=== PATIENT | male | born 1945 | race Caucasian/White ===

== ENCOUNTER 2019-09-13 16:32 | Inpatient (IN) | payer MEDICARE ==
[~2019-09-13] VITALS: Ht 182.9 cm; Wt 110.5 kg
[2019-09-13 16:56] VITALS: BP 178/99
[2019-09-13 17:11] LABS: ABSOLUTE EOSINOPHILS 0.1 thou/uL (0.0-0.7); ABSOLUTE LYMPHOCYTES 1.6 thou/uL (0.8-5.3); ABSOLUTE MONOCYTES 0.6 thou/uL (0.0-1.2); ABSOLUTE NEUTROPHILS 4.9 thou/uL (1.6-8.1); BASOPHILS 0.7 %; HEMATOCRIT 43.2 % (42.0-52.0); HEMOGLOBIN 15.2 gm/dL (14.0-18.0); LYMPHOCYTES 22.3 %; MCH 33.5 pg (26.0-34.0); MCHC 35.2 g/dL (28.0-37.0); MCV 95.1 fL (80.0-100.0); MONOCYTES 8.1 %; MPV 8.4 fl. (7.2-11.1); NUCLEATED RBCS 0 /100WBC; PLATELET COUNT* 214 thou/uL (150-400); POLYS 67.9 %; RBC 4.54 mil/uL (4.50-6.00); RDW-CV 12.9 % (10.5-14.5); WBC 7.2 thou/uL (4.0-11.0)
[2019-09-13] MEDS ORDERED: SERTRALINE HCL100 MG PO (17:15)
[2019-09-13] MEDS ORDERED: ALLOPURINOL 10100 M1 PO (17:15)
[2019-09-13 17:24] LABS: CALCIUM 8.3 mg/dL (8.5-10.1); CREATININE 0.8 mg/dL (0.6-1.3); POTASSIUM 3.8 mmol/L (3.5-5.1)
[2019-09-13 17:39] LABS: ALBUMIN 3.8 g/dL (3.4-5.0); TOTAL BILIRUBIN 0.8 mg/dL (<0.1-1.0)
[2019-09-13 21:05] VITALS: BP 129/98
[2019-09-13 21:30] VITALS: BP 135/81
[2019-09-14] VITALS: BP 131/75
[2019-09-14 04:00] VITALS: BP 135/75
[2019-09-14 05:50] LABS: URINE BILIRUBIN NEGATIVE (Negative); URINE BLOOD NEGATIVE (Negative); URINE CLARITY CLEAR; URINE COLOR YELLOW; URINE GLUCOSE-RANDOM NEGATIVE (Negative); URINE KETONES NEGATIVE (Negative); URINE PROTEIN NEGATIVE (Negative); URINE SPECIFIC GRAVITY 1.015 (1.005-1.030); URINE UROBILINOGEN 0.2 E.U./dl (0.2-1.0)
[2019-09-14 06:02] LABS: URINE LEUKOCYTES-REFLEX 3+ (Negative); URINE NITRITE-REFLEX POSITIVE (Negative)
[2019-09-14 06:44] LABS: CASTS None Seen /LPF (None Seen); SQUAMOUS 0-3 Few /LPF (0-3)
[2019-09-14 06:45] LABS: CRYSTALS None Seen /LPF (None Seen); URINE RBC 0-2 Rare /HPF (0-2)
[2019-09-14 08:00] VITALS: BP 146/80
[2019-09-14 11:43] LABS: BE 1.2 mmol/L (-2 to +3); PCO2 43.1 mmHg (35.0-45.0); PO2 79.2 mmHg (75.0-100.0); pH 7.403 (7.340-7.450)
[2019-09-14 11:44] VITALS: BP 142/75
[2019-09-14 16:33] VITALS: BP 129/60
[2019-09-14 20:00] VITALS: BP 149/77
[2019-09-15] VITALS: BP 137/63
[2019-09-15 03:42] LABS: HEMATOCRIT 40.4 % (42.0-52.0); HEMOGLOBIN 14.3 gm/dL (14.0-18.0); MCH 33.4 pg (26.0-34.0); MCHC 35.3 g/dL (28.0-37.0); MCV 94.5 fL (80.0-100.0); MPV 8.2 fl. (7.2-11.1); RBC 4.28 mil/uL (4.50-6.00); RDW-CV 13.5 % (10.5-14.5); WBC 6.8 thou/uL (4.0-11.0)
[2019-09-15 03:50] LABS: CALCIUM 8.5 mg/dL (8.5-10.1); CREATININE 0.8 mg/dL (0.6-1.3); MAGNESIUM 1.9 mg/dL (1.8-2.4); POTASSIUM 3.7 mmol/L (3.5-5.1)
[2019-09-15 04:00] VITALS: BP 140/68
[2019-09-15 08:00] VITALS: BP 156/76
[2019-09-15 11:19] VITALS: BP 150/90
--- NOTE | 2019-09-15 12:53 | EKG ---
[place] [address] ELECTROCARDIOGRAM REPORT Name: NICOLASA HOLMAN Room: [address] IN .R.#: [id number] Admission: 09/14/19 Attend Phys: Oliver Aguero, Discharge: Date of : 41 Date of Service: 09/13/19 1737 Report #: [id number] THIS REPORT FOR: //name// [facility] ED Test Date: 2019-09-13 Test Time: 17:37:26 Pat Name: NICOLASA RAMOSJAY Department: Room: [facility] Gender: M Clerical Order Filler: TDS : 1945 Requested By: Aren Mosqueda Order Number: [id number] MD: Charlie Dumont Measurements Intervals [place] Rate: 69 P: -65 HI: 218 QRS: -25 QRSD: 89 T: 69 QT: 418 QTc: 448 Interpretive Statements Sinus or ectopic atrial rhythm Borderline prolonged HI interval Borderline left axis deviation Borderline low voltage, extremity leads No previous ECG available for comparison Electronically Signed On 09-15-2019 12:53:05 CDT by Charlie Dumont [email or web address] <ELECTRONICALLY SIGNED> By: Charlie Dumont MD, FACC 09/15/19 1253 1737 1737 Charlie Dumont MD, [facility] /EPI
[2019-09-15 20:00] VITALS: BP 150/70
[2019-09-16] VITALS: BP 168/88
[2019-09-16 04:00] VITALS: BP 164/79
[2019-09-16 08:00] VITALS: BP 135/86
[2019-09-16] MEDS ORDERED: LISINOPRIL-HCT1 EAC2 PO (09:23)
[2019-09-16 12:35] VITALS: BP 121/65
[2019-09-16 17:48] VITALS: BP 154/77
[2019-09-16 20:00] VITALS: BP 142/74
[2019-09-17 04:00] VITALS: BP 148/87
[2019-09-17 08:44] VITALS: BP 169/78
[2019-09-17] MEDS ORDERED: VITAMIN B122500 MCG PO (09:59)
[2019-09-17] MEDS ORDERED: PREDNISONE 10 M10 MG PO (09:59)
[2019-09-17] MEDS ORDERED: LEVAQUIN 500 M500 M1 PO (09:59)
[2019-09-17 11:30] VITALS: BP 169/78
[2019-09-17 12:30] VITALS: BP 169/78
[2019-09-17 13:00] VITALS: BP 169/78
--- NOTE | 2019-09-18 20:00 | EEG ---
[address] [address] EEG STUDY REPORT Name: NICOLASA HOLMAN Room: [address] IN M.R.#: [id number] Admission: 09/14/19 Attend Phys: Oliver Aguero MD Discharge: 09/17/19 Date of : 41 Report #: [id number] THIS REPORT FOR: //name// CC: Oliver Elise DATE OF SERVICE: 09/14/2019 This patient is being evaluated for altered mental status. EEG was done by placing the electrode by standard 10-20 system of electrode placement. Both referential and sequential montages were used for recording. Background activity in this patient's EEG is about 9 Hz and 30 microvolt. The patient went to sleep that is associated with bilateral slowing and vertex sharp waves. Photic stimulation is unremarkable. Throughout the record, no active epileptiform activity was noticed. IMPRESSION: This patient's EEG is intermixed with some theta range slowing on both sides. That is a nonspecific abnormality, which can occur with encephalopathy, effect of psychotropic medication, dementia, etc. Clinical correlation is recommended. <ELECTRONICALLY SIGNED> By: Donnell Dave MD 09/18/191999 1310 1314Pjanet Dave MD /nt
--- NOTE | 2019-09-18 20:00 | CON ---
[address] [address] CONSULTATION Name: NICOLASA HOLMAN Room: [address] IN M.R.#: [id number] Admission: 09/14/19 Attend Phys: Oliver Aguero MD Discharge: 09/17/19 Date of : 41 Report #: [id number] THIS REPORT FOR: //name// cc: Shane Elise MD, David L. MD ~ THIS REPORT FOR: //name// CC: Oliver Elise DATE OF SERVICE: 09/14/2019 HISTORY OF PRESENT ILLNESS: This is a 74-year-old male patient who is admitted with pretty unusual history. He does not provide any history. He does not even open his eyes. I was able to reach the patient's and she indicated this is his third episode. He gets confused for a couple of 3 days, then he becomes better. They did not seek any medical attention the last time and basically kept him at home and he became better. They thought he was depressed because he has lot on his plate. She says that he has to take care of her and she also has other instance, which she thinks might be making him depressed. He is on antidepressant. REVIEW OF SYSTEMS: Apparently is positive for COPD with exacerbation. There was some shaking noticed when this happened. I do not get a clear-cut history that it was a seizure. I carried out 14-point review of systems as much as I could from the record as well as from the patient's . He apparently has a history of knee replacement, hiatus hernia, hypertension, depression, emphysema. His CT scan shows prior cerebellar strokes. That was his relevant 14-point review of systems. PAST MEDICAL HISTORY: Positive for similar episodes. FAMILY HISTORY: Unremarkable. SOCIAL HISTORY: The record says he drinks alcohol, but did not provide that history. PHYSICAL EXAMINATION: NEUROLOGIC: Very limited. He is sleepy. He will not wake up. When I will try to examine his eye, he will squeeze it shut. I tried to do the cranial nerve examination, he will not cooperate. He did not talk at all to me. One time he followed simple command when I asked him to stick his tongue out. I cannot tell about sensory, motor examination. His tone looks unremarkable. Reflexes look symmetrical. He will not do cerebellar sign for me. I do not believe he has meningeal sign. He refused to be examined for pupil or for the fundus. RESPIRATORY: He does not appear to [place] [address] CONSULTATION Name: NICOLASA HOLMAN Room: [address]#: [id number] Admission: 09/14/19 Attend Phys: Oliver Aguero MD Discharge: 09/17/19 Date of : 41 Report #: [id number] VITAL SIGNS: His pulses are difficult to feel. His blood pressure is 142/75, respirations 16, pulse is 77, temperature is 98.2. LABORATORY DATA: His white count is normal. UTI does indicate finding consistent with urinary tract infections. Cardiac examination is unremarkable. Head MRI does not show any new stroke. CT shows old stroke, but no new stroke. IMPRESSION: Pretty difficult to form in this patient. Although it can be seizure, but history is not very classical. Urinary tract infection causing encephalopathy and then seizure is a real possibility in this patient. It is unlikely a stroke or any central nervous system infection. RECOMMENDATIONS: 1. We will get an EEG. 2. We will see if he improves with treatment of the urinary tract infection. 3. If he does not, then he will need a spinal tap. I discussed all of it with the patient's and she understands and she wants to follow this plan. Thank you very much for this referral and if you have any question, please feel free to contact. <ELECTRONICALLY SIGNED> By: Donnell Dave MD 09/18/191999 1542 1617Parandressa Dave MD /nt
== END 2019-09-17 13:09 | disposition home health service (06) | DRG 193 ==
LOC: M.ERS 16:32 → M.TBA-ER 18:43 → M.2W 21:37
PROVIDERS: Emergency Medicine Emergency Medical Services; Internal Medicine; ADMIT Internal Medicine; ATTEND Internal Medicine
DX: J18.9 Pneumonia, unspecified organism (principal); J96.01 Acute respiratory failure with hypoxia; G92 Toxic encephalopathy; N39.0 Urinary tract infection, site not specified; J44.0 Chronic obstructive pulmonary disease with (acute) lower respiratory infection; I10 Essential (primary) hypertension; B96.89 Other specified bacterial agents as the cause of diseases classified elsewhere; E53.8 Deficiency of other specified B group vitamins; E66.9 Obesity, unspecified; F32.9 Major depressive disorder, single episode, unspecified; Z20.828 Contact with and (suspected) exposure to other viral communicable diseases; Z96.659 Presence of unspecified artificial knee joint; Z88.0 Allergy status to penicillin; Z79.899 Other long term (current) drug therapy; Z86.73 Personal history of transient ischemic attack (TIA), and cerebral infarction without residual deficits; Z68.33 Body mass index [BMI] 33.0-33.9, adult

== ENCOUNTER 2019-09-19 10:59 | Emergency (ER) | payer MEDICARE ==
[~2019-09-19] VITALS: Ht 185.4 cm; Wt 105.7 kg
[~2019-09-19 10:59] MED LIST: ALLOPURINOL 10100 M1 PO; LEVAQUIN 500 M500 M1 PO; LISINOPRIL-HCT1 EAC2 PO; PREDNISONE 10 M10 MG PO; SERTRALINE HCL100 MG PO; VITAMIN B122500 MCG PO
[2019-09-19 11:25] LABS: ABSOLUTE EOSINOPHILS 0.1 thou/uL (0.0-0.7); ABSOLUTE MONOCYTES 0.8 thou/uL (0.0-1.2); ABSOLUTE NEUTROPHILS 4.9 thou/uL (1.6-8.1); BASOPHILS 0.3 %; EOSINOPHILS 1.8 %; HEMATOCRIT 42.5 % (42.0-52.0); HEMOGLOBIN 14.9 gm/dL (14.0-18.0); LYMPHOCYTES 25.4 %; MCH 33.3 pg (26.0-34.0); MONOCYTES 10.7 %; MPV 7.9 fl. (7.2-11.1); NUCLEATED RBCS 0 /100WBC; PLATELET COUNT* 199 thou/uL (150-400); POLYS 61.8 %; RBC 4.47 mil/uL (4.50-6.00); RDW-CV 13.4 % (10.5-14.5); WBC 7.8 thou/uL (4.0-11.0)
[2019-09-19 11:32] LABS: CALCIUM 8.5 mg/dL (8.5-10.1); CREATININE 0.8 mg/dL (0.6-1.3); POTASSIUM 3.9 mmol/L (3.5-5.1)
[2019-09-19 11:33] LABS: APTT 25.2 Seconds (25.0-31.3); PROTIME 10.8 Seconds (9.20-11.50)
[2019-09-19 11:43] LABS: ALBUMIN 3.8 g/dL (3.4-5.0); TOTAL BILIRUBIN 0.8 mg/dL (<0.1-1.0); TOTAL PROTEIN 6.7 g/dL (6.4-8.2)
[2019-09-19 14:13] VITALS: BP 140/84
--- NOTE | 2019-09-19 15:46 | EKG ---
[place] [address] ELECTROCARDIOGRAM REPORT Name: NICOLASA HOLMAN Room: [facility]#: [id number] Admission: 09/19/19 Attend Phys: Discharge: 09/19/19 Date of : 41 Date of Service: 09/19/19 1202 Report #: [id number] THIS REPORT FOR: //name// [facility] ED Test Date: 2019-09-19 Test Time: 12:02:24 Pat Name: NICOLASA RAMOSJAY Department: Room: Gender: Rn Review: : 1945 Requested By: Conner Ramirez Order Number: [id number] MD: Charlie Dumont Measurements Intervals [place] Rate: 81 P: 13 ID: 226 QRS: -14 QRSD: 87 T: 75 QT: 393 QTc: 457 Interpretive Statements Sinus arrhythmia Prolonged ID interval Borderline low voltage, extremity leads Anteroseptal infarct, age indeterminate, possible compared to ECG 09/13/2019 17:37:26 Myocardial infarct finding now present Ectopic atrial rhythm no longer present Electronically Signed On 09-19-2019 15:46:28 CDT by Charlie Dumont [email or web address] <ELECTRONICALLY SIGNED> By: Charlie Dumont MD, FACC 09/19/19 1546 1202 1202 Charlie Dumont MD, FAC /EPI
== END 2019-09-19 14:39 | disposition home or self-care (01) ==
LOC: M.ERS 10:59
PROVIDERS: Family Medicine
DX: F41.0 Panic disorder [episodic paroxysmal anxiety] (principal); I10 Essential (primary) hypertension; F32.9 Major depressive disorder, single episode, unspecified; Z96.659 Presence of unspecified artificial knee joint; Z88.0 Allergy status to penicillin

== ENCOUNTER 2020-05-28 14:36 | Observation (INO) | payer OTHER ==
[~2020-05-28] VITALS: Ht 185.4 cm; Wt 107.0 kg
[2020-05-28 14:38] VITALS: BP 127/68
[2020-05-28 15:47] LABS: ABSOLUTE EOSINOPHILS 0.1 thou/uL (0.0-0.7); ABSOLUTE LYMPHOCYTES 1.6 thou/uL (0.8-5.3); ABSOLUTE MONOCYTES 0.6 thou/uL (0.0-1.2); ABSOLUTE NEUTROPHILS 3.8 thou/uL (1.6-8.1); BASOPHILS 0.5 %; EOSINOPHILS 2.2 %; HEMATOCRIT 38.6 % (42.0-52.0); HEMOGLOBIN 13.1 gm/dL (14.0-18.0); MCH 31.4 pg (26.0-34.0); MCHC 33.9 g/dL (28.0-37.0); MCV 92.5 fL (80.0-100.0); MONOCYTES 9.5 %; MPV 8.2 fl. (7.2-11.1); NUCLEATED RBCS 0 /100WBC; PLATELET COUNT* 187 thou/uL (150-400); POLYS 61.8 %; RBC 4.17 mil/uL (4.50-6.00); RDW-CV 13.8 % (10.5-14.5); WBC 6.1 thou/uL (4.0-11.0)
--- NOTE | 2020-05-28 15:55 | EKG ---
[place] [address] ELECTROCARDIOGRAM REPORT Name: NICOLASA HOLMAN Room: [facility]#: [id number] Admission: 05/28/20 Attend Phys: Discharge: Date of : 41 Date of Service: 05/28/20 1542 Report #: [id number] THIS REPORT FOR: //name// [facility] ED Test Date: 2020-05-28 Test Time: 15:42:55 Pat Name: NICOLASA HOLMAN Department: Room: Gender: Transmission Maintenance Supervisor: [facility] : 1945 Requested By: Conner Ramirez Order Number: [id number] MD: Shane Johnson Measurements Intervals [place] Rate: 51 P: 0 MT: 235 QRS: 40 QRSD: 95 T: 104 QT: 449 QTc: 414 Interpretive Statements Sinus bradycardia Prolonged MT interval Low voltage, extremity leads Nonspecific T abnormalities, lateral leads Compared to ECG 09/19/2019 12:02:24 Sinus arrhythmia no longer present Electronically Signed On 05-28-2020 15:55:45 CDT by Shane Johnson [email or web address] <ELECTRONICALLY SIGNED> By: Shane Johnson MD, FAC 05/28/20 1555 1542 1542 Shane Johnson MD, [facility] /EPI
[2020-05-28 15:57] LABS: CALCIUM 8.3 mg/dL (8.5-10.1); CREATININE 0.7 mg/dL (0.6-1.3); POTASSIUM 3.5 mmol/L (3.5-5.1)
[2020-05-28 16:01] LABS: ALBUMIN 3.2 g/dL (3.4-5.0); TOTAL BILIRUBIN 0.7 mg/dL (<0.1-1.0); TOTAL PROTEIN 6.2 g/dL (6.4-8.2)
[2020-05-28 16:08] LABS: APTT 26.9 Seconds (25.0-31.3)
[2020-05-28 18:11] VITALS: BP 124/65
[2020-05-28 18:43] VITALS: BP 120/67
[2020-05-28] MEDS ORDERED: FLOMAX0.4 MG PO (18:53)
--- NOTE | 2020-05-28 19:03 | NUR ---
RECIEVIED REPORT FROM ISI CMKEON IN ER OF EXPECTED ADMISSION- DX: INTRACTABLE BACK PAIN, WEAKNESS, AND TACHYCARDIA- PT ARRIVED TO ROOM 231 VIA CART, SBA TO BED- ACCOUNTANT AUDITOR PLACED ORDERED, TRACING SB/1ST DEGREE- NURSE IN ER REPORTS ST TO BE CONFUSED WITH TREMORS THAT HE WAS HAVING WHILE IN ER- EKG NOTED SB- VSS, O2 SAT 99% ON 2L VIA NC- PT DENIES ANY PAIN AT TIME OF ADMISSION- CARDIO CONSULTED ORDERED- BOX LUNCH PROVIDED TO PT WITH GOOD PO INTAKE NOTED- CALL LIGHT AND PERSONAL BELONGINGS WITH IN REACH- ALL NEEDS MET AT THIS TIME
[2020-05-28 20:00] VITALS: BP 134/68
--- NOTE | 2020-05-28 20:00 | NUR ---
RECEIVED REPORT AND ASSUMED CARE OF PT, ASSESSMENT COMPLETED. TELEMETRY ON SHOWING SB WITH 1ST AVB. DENIES BACK PAIN AT THIS TIME. WILL CONT TO MONITOR AND ASSIST NEEDED.
[2020-05-28 23:40] VITALS: BP 124/64
[2020-05-29 05:04] VITALS: BP 121/66
--- NOTE | 2020-05-29 05:17 | NUR ---
SLEPT WELL TONIGHT. O2 AT 2L/NC, WEARS MOSTLY AT NIGHT WHEN SLEEPING. NO COMPLAINTS VOICED. HS GOALS OF REST AND SAFETY ACHIEVED. HOURLY ROUNDING OBSERVED.
[2020-05-29 08:00] VITALS: BP 134/80
--- NOTE | 2020-05-29 10:12 | NUR ---
CM SPOKE TO THE PT TO DISCUSS CM ASSESSMENT. PT A&O, NORMALLY INDEPENDENT WITH ADL'S, ACTIVE AND DRIVES. PT RESIDES AT HOME WITH SPOUSE. PT USES HOME OXYGEN @ 3L AT [facility] AND PRN PROVIDED BY [facility]. PT HAS PAST HH HX WITH [facility]. PT HAS 0 HX OF SNF. CM WILL REMAIN AVAILABLE TO ASSIST AND FOLLOW NEEDED.
[2020-05-29 11:45] VITALS: BP 126/71
--- NOTE | 2020-05-29 14:48 | NUR ---
[facility] Nurse Transition Navigator Bedside Assessment Note: Patient is receptive to HH. Says he thinks he had this for his . Pt. lives with who has worsening dementia. Patient was admitted with severe back pain and has been having pain injections for this. We discussed specific therapy to help with his pain. Patient will remain Homebound and will have his meds available for viewing.
--- NOTE | 2020-05-29 14:57 | CON ---
[address] [address] CONSULTATION Name: NICOLASA HOLMAN Room: [address] Raegan Zelaya#: [id number] Admission: 05/28/20 Attend Phys: Mercedes Rios Discharge: Date of : 41 Report #: [id number] THIS REPORT FOR: cc: Shane Elise MD, David L. MD Blick, David R. MD [facility] ~ DATE OF SERVICE: 05/29/2020 CARDIOLOGY CONSULTATION HISTORY OF PRESENT ILLNESS: The patient is a 75-year-old white male whom I was asked to see in the hospital today after he was noted to be tachycardic. The patient quit smoking years ago. However, he does have a history of COPD and is on home oxygen and uses a nebulizer. He is not very active at this time. He has had chronic back pain for years and has received epidurals in the past. Yesterday, he was at home when he fell off the chair and could not get up. He called the ambulance and brought here to [facility] for further evaluation and treatment. He denied the pain radiating down his legs. He denied any weakness of his legs. Denied any recent trauma. He denies a history of chest pain, myocardial infarction, or syncope. PAST MEDICAL HISTORY: He has had knee surgery, epidural injections in the past, and hypertension. CURRENT MEDICATIONS: Consists of allopurinol, lisinopril HCT, Zoloft, Flomax. ALLERGIES: HE HAS NO ALLERGY TO PENICILLIN. FAMILY HISTORY: Negative for heart disease. SOCIAL HISTORY: He is . He and his live in [place]. He is a retired, clerical worker. He quit smoking years ago. He used to drink alcohol daily, but quit years ago. REVIEW OF SYSTEMS: He apparently had an MRI in the past that showed evidence of previous stroke. No history of liver disease, kidney disease, cancer, psychiatric illness, chronic skin condition. PHYSICAL EXAMINATION: GENERAL: Revealed an elderly male, lying in bed, appeared in no distress. VITAL SIGNS: He had a blood pressure of 130/60s, pulse 60 and regular. He was afebrile. HEENT: He was anicteric. Conjunctivae pink. Mucous membranes are moist. NECK: Veins do not appear distended. No carotid bruits[place] [address] CONSULTATION Name: RIVERNICOLASA [address] [id number] Admission: 05/28/20 Attend Phys: Mercedes Rios Discharge: Date of : 41 Report #: [id number] CHEST: Revealed end expiratory wheezes. CARDIAC: Regular rate and rhythm. No murmur. ABDOMEN: Soft. EXTREMITIES: Has had no edema. Dorsalis pedis pulse 2+. SKIN: Cool and dry. NEUROLOGIC: Nonfocal. RADIOLOGICAL DATA: ECG showed sinus bradycardia, first-degree AV block, poor R-wave progression. His workup in the Emergency Room yesterday, he actually had a CT scan of the head that showed no acute abnormality, atrophy. He actually had carotid Doppler study performed last September here at [facility] that showed no significant stenosis. His last chest x-ray was in September here at [facility] that showed no acute abnormalities. LABORATORY WORK: In the Emergency Room, sodium 141, potassium 3.5, creatinine 0.7. Liver function studies were normal. Troponin 0.06. TSH last September was 0.6, T4 is 0.8. White blood cell count 6.1, hematocrit 38.6. IMPRESSION AND RECOMMENDATIONS: 1. Chronic back pain. 2. Sinus bradycardia. If symptomatic, he would require pacemaker. 3. Tachycardia noted on monitor. Appears to be artifact. Recommend no further cardiac evaluation. 4. Hypertension. The patient is on ROBERTA inhibitor and diuretic. 5. Chronic obstructive pulmonary disease. The patient is on chronic oxygen. <ELECTRONICALLY SIGNED> By: Shane Johnson MD, [facility] 05/29/20 1457 0901 0914Dayuli Johnson MD, FACC /nt
[2020-05-29 16:00] VITALS: BP 126/72
[2020-05-29 18:34] LABS: URINE BILIRUBIN NEGATIVE (Negative); URINE BLOOD NEGATIVE (Negative); URINE CLARITY CLEAR; URINE COLOR YELLOW; URINE GLUCOSE-RANDOM NEGATIVE (Negative); URINE KETONES NEGATIVE (Negative); URINE LEUKOCYTES-REFLEX NEGATIVE (Negative); URINE NITRITE-REFLEX NEGATIVE (Negative); URINE PROTEIN NEGATIVE (Negative); URINE UROBILINOGEN 0.2 E.U./dl (0.2-1.0)
[2020-05-29] MEDS ORDERED: PULMICORT0.25 MG/2 INH (18:55)
[2020-05-30] VITALS (7 sets, daily range): BP systolic 100–149; BP diastolic 59–81
[2020-05-30] MEDS ORDERED: PERCOCET PO (09:00)
--- NOTE | 2020-05-30 11:34 | NUR ---
ASSUMED CARE OF PATIENT THIS AM AT 0730. PATIENT IS ALERT AND ORIENTED X 4. HE C/O BACK PAIN THIS AM. TELE SHOWS SINUS GRICELDA ARRYTHMIA WITH A 1DAVB. PATIENT IS UP IN THE CHAIR THIS AM. PATIENT MEDICATED FOR PAIN X 1. HE STATED PAIN MEDICATION HELPED HIS PAIN. DR IN TO ROUND THIS AM. DISCHARGE ORDERS WERE WRITTEN. SALINE LOCK AND TELE MONITOR DISCONTINUED. SEATING CAPTAIN IN TO SEE PATIENT AND SET UP HOME HEALTH.
--- NOTE | 2020-05-30 11:49 | NUR ---
CM INFORMED OF PLAN FOR PT TO D/C HOME TODAY WITH PREVIOUSLY CHOSEN CHEMO. CM SPOKE TO THE PT AND HE IS IN AGREEMENT WITH THIS PLAN. CM FAXED CHEMO PT'S D/C ORDERS. NO OTHER CM D/C PLANNING NEEDS ANTICIPATED. CM WILL REMAIN AVAILABLE TO ASSIST AND FOLLOW NEEDED. CHEMO PHONE: [phone] FAX: [phone]
== END 2020-05-30 13:39 | disposition home health service (06) ==
LOC: M.ERS 14:36 → M.2W 16:47 → M.TBA-ER 16:47 → M.2W 18:26
PROVIDERS: Family Medicine; ADMIT Internal Medicine; ATTEND Internal Medicine
DX: M54.9 Dorsalgia, unspecified (principal); G89.29 Other chronic pain; Z20.822 Contact with and (suspected) exposure to COVID-19; I10 Essential (primary) hypertension; J44.9 Chronic obstructive pulmonary disease, unspecified; F32.9 Major depressive disorder, single episode, unspecified; M10.9 Gout, unspecified; R00.1 Bradycardia, unspecified; Z79.899 Other long term (current) drug therapy; Z87.891 Personal history of nicotine dependence

== ENCOUNTER 2020-11-18 19:54 | Emergency (ER) | payer OTHER ==
[~2020-11-18] VITALS: Ht 182.9 cm; Wt 99.8 kg
[~2020-11-18 19:54] MED LIST changes: +FLOMAX0.4 MG PO; +PERCOCET PO; +PULMICORT0.25 MG/2 INH
[2020-11-18] MEDS ORDERED: CELEXA 10 MG TA10 M1 PO (20:30)
[2020-11-18 20:39] LABS: HEMATOCRIT 36.4 % (42.0-52.0); HEMOGLOBIN 12.6 gm/dL (14.0-18.0); MCH 32.3 pg (26.0-34.0); MCHC 34.8 g/dL (28.0-37.0); MCV 92.9 fL (80.0-100.0); MPV 7.9 fl. (7.2-11.1); RBC 3.91 mil/uL (4.50-6.00); RDW-CV 13.7 % (10.5-14.5); WBC 6.7 thou/uL (4.0-11.0)
[2020-11-18 20:51] LABS: ANION GAP < 0 mmol/L (7-16); BUN 9 mg/dL (7-18); CALCIUM 8.7 mg/dL (8.5-10.1); CHLORIDE 105 mmol/L (98-107); CO2 33 mmol/L (21-32); CREATININE 0.7 mg/dL (0.6-1.3); GLUCOSE 92 mg/dL (70-99); POTASSIUM 3.7 mmol/L (3.5-5.1); SODIUM 135 mmol/L (136-145)
[2020-11-18 20:55] LABS: ALBUMIN 3.2 g/dL (3.4-5.0); ALKALINE PHOSPHATASE 78 U/L (46-116); SGOT 9 U/L (15-37); SGPT 17 U/L (30-65); TOTAL BILIRUBIN 0.5 mg/dL (<0.1-1.0); TOTAL PROTEIN 6.1 g/dL (6.4-8.2)
[2020-11-18 21:01] LABS: ALCOHOL < 10 mg/dL (<10); SALICYLATE < 2.8 mg/dL (2.8-20.0)
[2020-11-18 21:04] LABS: ACETAMINOPHEN < 2 ug/mL (10-30)
[2020-11-19 00:39] LABS: URINE BILIRUBIN NEGATIVE (Negative); URINE BLOOD NEGATIVE (Negative); URINE CLARITY CLEAR; URINE COLOR YELLOW; URINE GLUCOSE-RANDOM NEGATIVE (Negative); URINE KETONES NEGATIVE (Negative); URINE LEUKOCYTES NEGATIVE (Negative); URINE NITRITE NEGATIVE (Negative); URINE PROTEIN NEGATIVE (Negative); URINE SPECIFIC GRAVITY 1.015 (1.005-1.030)
[2020-11-19 00:47] LABS: AMP/METHAMP Negative (Negative); BARBITURATES Negative (Negative); BENZODIAZEPINES Negative (Negative); COCAINE Negative (Negative); METHADONE Negative (Negative); OPIATES Negative (Negative); PCP Negative (Negative); THC Negative (Negative)
[2020-11-19 02:10] VITALS: BP 109/57
--- NOTE | 2020-11-19 11:20 | EKG ---
[place] [address] ELECTROCARDIOGRAM REPORT Name: NICOLASA HOLMAN Room: [facility]#: [id number] Admission: 11/18/20 Attend Phys: Discharge: 11/19/20 Date of : 41 Date of Service: 11/18/202050 Report #: [id number] THIS REPORT FOR: //name// [facility] ED Test Date: 2020-11-18 Test Time: 20:51:36 Pat Name: NICOLASA RAMOSJAY Department: Room: Gender: Energy Conservation Specialist: : 1945 Requested By: Helen Baker Order Number: [id number] MD: Charlie Dumont Measurements Intervals [place] Rate: 117 P: [place]: QRS: -12 QRSD: 135 T: 78 QT: 389 QTc: 543 Interpretive Statements Atrial fibrillation Compared to ECG 05/28/2020 15:42:55 Sinus bradycardia no longer present First degree AV block no longer present T-wave abnormality still present Electronically Signed On 11-19-2020 11:19:48 CDT by Charlie Dumont [email or web address] <ELECTRONICALLY SIGNED> By: Charlie Dumont MD, FACC 11/19/20 1119 50 50 Charlie Dumont MD, FAC /EPI
== END 2020-11-19 02:12 ==
LOC: M.ERS 19:54
PROVIDERS: Personal Emergency Response Attendant
DX: R45.851 Suicidal ideations (principal); I10 Essential (primary) hypertension; Z79.899 Other long term (current) drug therapy; Z98.890 Other specified postprocedural states

== ENCOUNTER 2021-01-11 16:53 | Emergency (ER) | payer OTHER ==
[~2021-01-11 16:53] MED LIST changes: +CELEXA 10 MG TA10 M1 PO
== END 2021-01-11 17:32 | disposition left against medical advice (07) ==
LOC: M.ERS 16:53
DX: F41.9 Anxiety disorder, unspecified (principal); Z53.21 Procedure and treatment not carried out due to patient leaving prior to being seen by health care provider